=== PATIENT | male | born 2000 ===

== ENCOUNTER 2018-01-12 14:16 | Emergency (ER) | payer OTHER ==
--- NOTE | 2018-01-12 16:02 | RAD ---
INDICATION: Left anterior splinting chest pain. COMPARISON: There are no prior studies available for comparison. TECHNIQUE: Dual-energy PA and lateral views of the chest were obtained. FINDINGS: The heart is within normal limits in size. Mediastinal and hilar contours appear within normal limits. The lungs are clear. No pleural effusion or pneumothorax is seen. IMPRESSION: NO EVIDENCE FOR ACTIVE CARDIOPULMONARY DISEASE.
[2018-01-12 17:07] VITALS: BP 119/82
--- NOTE | 2018-01-12 18:28 | ED ---
Stevie Barraza Tiffany, scribed for Shaan Mane MD on 01/12/18 at 1527 . Abdominal Pain/Male - HPI Summary HPI Summary: The patient is a 17 y/o M presenting to [facility] complains of upper abdominal pain near left rib since two days ago. The pain is not constant, only comes when he breathes deeply. The patient rates the pain 4/10 in severity. Symptoms aggravated by deep breathing. Symptoms alleviated by nothing. Denies cough, recent illness, bilateral calf pain. - History of Current Complaint Chief Complaint: EDChestWallPain Stated Complaint: CHEST PAIN Time Seen by Provider: 01/12/18 15:09 Hx Obtained From: Patient Onset/Duration: Lasting Days - 2 days, Still Present Severity Currently: Moderate Pain Intensity: 4 Pain Scale Used: 0-10 Numeric Location: Other - Near left rib Aggravating Factor(s): Deep Breaths Alleviating Factor(s): Nothing Associated Signs And Symptoms: Positive: Negative - Recent illness, bilateral calf pain. Negative: Cough - Allergies/Home Medications Allergies/Adverse Reactions: Allergies Allergy/AdvReac Type Severity Reaction Status Date / Time No Known Allergies Allergy Verified 01/12/18 14:23 Home Medications: Home Medications NK [No Home Medications Reported] 01/12/18 [History Confirmed 01/12/18] PMH/Surg Hx/FS Hx/Imm Hx Previously Healthy: No Respiratory History: Reports: Hx Asthma History: Denies: Hx Renal Disease Sensory History: Denies: Hx Deafness, Hx Hearing Aid, Hx Hearing Problem EENT History: Denies: Hx Deafness, Hx Hearing Problem Psychiatric History: Denies: Hx Panic Disorder - Surgical History Surgery Procedure, Year, and Place: None reported Infectious Disease History: No Infectious Disease History: Denies: Traveled Outside the [place] in Last 30 Days - Family History Known Family History: Positive: Hypertension - Father, Diabetes - Brother with Type I , Other - Grandparents with cancer - Social History Hx Substance Use: Yes Substance Use Type: Reports: Marijuana Review of Systems Constitutional: Negative - Recent illness Negative: Cough Positive: Abdominal Pain - Near left rib Positive: Other - Bilateral calf pain All Other Systems Reviewed And Are Negative: Yes Physical Exam - Summary Physical Exam Summary: General: well-appearing, no pain distress Skin: warm, color reflects adequate perfusion, dry Head: normal Eyes: EOMI, EM ENT: normal Neck: supple, nontender Respiratory: CTA, breath sounds present Cardiovascular: RRR Abdomen: soft, nontender Bowel: present Musculoskeletal: normal, strength/ROM intact Neurological: normal, sensory/motor intact, A&O x3 Psychological: affect/mood appropriate Triage Information Reviewed: Yes Vital Signs On Initial Exam: Initial Vitals Temp Pulse Resp BP Pulse Ox 98.7 F 81 17 135/81 100 01/12/18 14:20 01/12/18 14:20 01/12/18 14:20 01/12/18 14:20 01/12/18 14:20 Vital Signs Reviewed: Yes Diagnostics - Vital Signs Vital Signs Temp Pulse Resp BP Pulse Ox 01/12/18 14:20 98.7 F 81 17 135/81 100 - Laboratory Lab Statement: Any lab studies that have been ordered have been reviewed, and results considered in the medical decision making process. - Radiology CXR Radiology Interpretation Completed By: Radiologist - NO EVIDENCE FOR ACTIVE CARDIOPULMONARY DISEASE. ED physician has reviewed this report. Abdominal Pain Fem Course/Dx - Course Course Of Treatment: DISCUSSED RESULTS WITH PATIENT AND HIS MOTHER. WE DISCUSSED OTHER POSSIBLE CAUSES OF CHEST PAIN TO INCLUDE PULMONARY EMBOLIM. CLEOPATRA IS AT LOW RISK FOR PE THEREFORE, AT THIS TIME, WILL NOT DO DDIMER. F/U PMD IF NOT IMPROVED; RETURN IF WORSE. - Diagnoses Provider Diagnoses: Chest pain Discharge - Sign-Out/Discharge Documenting (check all that apply): Discharge/Admit/Transfer - Discharge Plan Condition: Stable Disposition: HOME Patient Education Materials: Chest Pain (ED) Referrals: Delmar Lehman MD [Primary Care Provider] - Additional Instructions: FOLLOW UP WITH YOUR DOCTOR IF NOT COMPLETELY IMPROVED. RETURN TO THE EMERGENCY DEPARTMENT FOR ANY WORSENING OF YOUR CONDITION OR QUESTIONS OR CONCERNS. - Billing Disposition and Condition Condition: STABLE Disposition: HOME The documentation as recorded by the Stevie kirby Tiffany accurately reflects the service I personally performed and the decisions made by me, Sahan Mane MD.
== END 2018-01-12 17:05 | disposition home or self-care (01) ==
LOC: ED 14:16
DX: R07.9 Chest pain, unspecified (principal); R10.10 Upper abdominal pain, unspecified; M79.662 Pain in left lower leg; M79.661 Pain in right lower leg
CPT/HCPCS: 71046; 99282